=== PATIENT | male | born 1980 | race Caucasian/White ===

== ENCOUNTER 2023-12-23 09:54 | Day surgery (SDC) | payer OTHER ==
[2023-12-22 15:27] LABS: Absolute Basophils 0.1 K/uL (0-0.5); Absolute Eosinophils 0.1 K/uL (0-0.5); Absolute Lymphocytes (CBC) 1.9 K/uL (0.7-4.9); Absolute Monocytes 0.7 K/uL (0.1-1.3); Absolute Neutrophil 3.6 K/uL (1.8-8.0); Basophils % 1.1 % (0-1.3); Eosinophils % 1.8 % (0-4.4); Hematocrit 48.4 % (39.6-49.0); Hemoglobin 16.5 g/dL (13.6-17.9); Lymphocytes % 29.9 % (15.3-44.8); MCH 30.8 pg (27.0-35.0); MCHC 34.1 g/dL (32.0-36.0); MCV 90.3 fL (80-100); MPV 8.3 fL (7.6-11.3); Monocytes % 10.5 % (3.3-12.3); Neutrophils % 56.7 % (41.7-73.7); Nucleated Red Blood Cells % 0.2 % (0-0); Platelets 223 thou/uL (152-406); RBC Red Blood Cell Count 5.35 M/uL (4.33-5.43)
[2023-12-23] MEDS: Ringers Lactate 1,000 ML IV ONE (10:17)
[2023-12-23] MEDS ORDERED: propofoL 200 MG/20 ML VIAL IV ONE (10:31)
[2023-12-23] MEDS ORDERED: LIDOCAINE 2% MPF 5 ML VIAL ONE (10:31)
[2023-12-23] MEDS ORDERED: MIDAZOLAM HCL 2 MG/2 ML INJ ONE (10:31)
[2023-12-23] MEDS ORDERED: ONDANSETRON 4 MG/2 ML VIAL ONE (10:31)
[2023-12-23] MEDS ORDERED: FENTANYL CITR 100 MCG/2 ML ONE (10:31)
[2023-12-23] MEDS ORDERED: dexAMETHasone 10 MG/ML VIAL ONE (11:15)
[2023-12-23] MEDS: CEFAZOLIN SODIUM 1 GM/VIAL ONE (11:15)
[2023-12-23] MEDS ORDERED: KETOROLAC 30 MG/ML INJ ONE (11:35)
[2023-12-23] MEDS: HYDROMORPHONE HCL 1 MG/ML INJ ONE ×2 (12:10→12:20)
[2023-12-23 12:23] VITALS: O2SAT 100
[2023-12-23] MEDS: HYDROCODONE/APAP 10/325 TAB ONE (12:50)
[2023-12-23 13:56] VITALS: BP 122/85; TEMP 96.8
--- NOTE | 2023-12-23 16:23 | OP ---
Date of Procedure: 12/23/2023 Surgeon: Monty Holder MD Preoperative Diagnosis: Right de Quervain. Postoperative Diagnosis: Right de Quervain. Procedure: Right wrist de Quervain release. Estimated Blood Loss: Less than 5 cc. Complications: There were no complications. Specimens: No pathology specimens sent. Indications For Operation: Mr. Awad is a 43-year-old gentleman who unfortunately had been in troubl e with pain in his right radial styloid. He has had 2 injections which were excellent for temporary relief, however, returns back after a second injection with recurrent pain in the region of the radia l styloid. He has a positive Cristhian's test as well as pain and swelling of the radial styloid. Risks, benefits, and alternatives of different methods of treating this were discussed with him. De justaion was made to move forward with de Quervain release, at this point, and all of his questions wer e answered. Description Of Procedure: The patient was taken to the operating room, placed in supine position. G eneral anesthesia was easily obtained by Anesthesia staff. Following this, well-padded tourniquet wa s placed on superior right arm. Right upper extremity was then prepped and draped in the usual steri le fashion for the procedure. Following this, the arm was then elevated, but not exsanguinated. Aleksandar rniquet was raised. A transverse incision was made just proximal to the tip of the radial styloid. This was made carefully through skin only. Care being taken not to proceed too deeply to avoid injur ing the superficial radial nerve fibers. After an incision was made in the skin, a pure blunt dissec tion was used with spreading to allow for visualization of the first extensor compartment. First ext ensor compartment was then identified. A small unique was made in this and this was then progressed fr om proximal to distal until there were no constricting bands and distal to proximal until there were no constricting bands and the underlying first compartment tendons were seen. Following this, attent ion was paid toward looking for an accessory sheath, however, none is found and the tendon of the ext ensor pollicis brevis is tensioned which demonstrates function of the extensor pollicis brevis showin g that this was released and not accessory sheath. After this, it was gently irrigated and the skin was closed using nylon sutures. The patient was then placed in a well-padded sterile dressing, awake lisa, and taken to recovery room. JEM Voice ID: [id number] Report ID: [id number]
--- NOTE | 2023-12-26 13:10 | EKG ---
Test Date: 2023-12-22 Test Time: 15:06:38 Practice Assistant: RAPHAEL MEASUREMENT RESULTS: Intervals: Rate: 72 CT: 170 QRSD: 86 QT: 366 QTc: 400 [place]: P: 56 CT: 170 QRS: 63 T: 43 INTERPRETIVE STATEMENTS: Normal sinus rhythm with sinus arrhythmia Normal ECG No previous ECG available for comparison Electronically Signed On 12-26-23 12:59:16 CDT by Geovanny Avila
== END 2023-12-23 13:22 | disposition home or self-care (01) ==
LOC: OR 09:54
PROVIDERS: ATTEND Orthopaedic Surgery
PROC: 0LN50ZZ Release Right Lower Arm and Wrist Tendon, Open Approach (ICD-10-PCS; principal; 2023-12-23 11:00)
DX: M65.4 Radial styloid tenosynovitis [de Quervain] (principal); M25.531 Pain in right wrist; F17.290 Nicotine dependence, other tobacco product, uncomplicated; U09.9 Post COVID-19 condition, unspecified; Z88.5 Allergy status to narcotic agent; Z88.1 Allergy status to other antibiotic agents
CPT/HCPCS: 93005; 85025; 80048; 36415; 25000; J2704; J2001; J2250; J3010; J1100; J1170 ×2; J2405; J7120; J0690